=== PATIENT | female | born 1955 | race Caucasian/White ===

== ENCOUNTER 2020-08-18 11:59 | Emergency (ER) | payer BC, SELFPAY ==
--- NOTE | 2020-08-18 12:05 | ED.FEMALEGU ---
HPI - Female Genitourinary General Chief complaint: Urogenital-Female Stated complaint: FREQUENT URINATION/BLOOD IN URINE Time Seen by Provider: 08/18/20 12:39 Source: patient, RN notes reviewed and old records reviewed Mode of arrival: ambulatory Limitations: no limitations History of Present Illness HPI Narrative: 64-year-old female who presents to [facility] with complaints of 3-day history of lower abdominal pain with fatigue and some fevers. Patient states some frequency with urination, burning with urination, and urgency, states past history of UTIs. Patient states that she has noted that her urine had a strong odor and was very dark. Patient admits to some right sided flank pain and suprapubic tenderness. Patient denies any nausea or vomiting or any decreased appetite, reports no fevers over 101F noted, has taken Tylenol for her discomfort and fever. Has been taking [employer] for her symptoms. MD elicited complaint: UTI , flank pain (right) and other (lower abdominal pain with strong odorous urine) Onset (ago): day(s) (3) Location of symptoms: suprapubic and flank (right) Female Urogenital Radiation: Suprapubic and R Flank Vaginal discharge: none Vaginal bleeding: none Urinary symptoms: Dysuria, Urgency, Frequency, Hematuria, Foul Smelling Urine and Flank Pain (right) Possible : postmenopausal Related Data Home Medications Medication Instructions Recorded Confirmed cholecalciferol (vitamin D3) 125 See Rx Instructions .ROUTE .COMPLEX 10/27/19 mcg (5,000 unit) tablet atomoxetine 18 mg capsule 36 mg PO DAILY 02/04/20 Allergies Allergy/AdvReac Type Severity Reaction Status Date / Time No Known Allergies Allergy Unverified 11/09/17 09:40 Review of Systems Review of Systems: Narrative: CONSTITUTIONAL: Denies fever, chills, or sweats. EYES: Denies visual changes, redness, or discharge. ENT: Denies rhinorrhea, congestion, sore throat, or otalgia. CARDIOVASCULAR: Denies chest pain, palpitations, or edema. RESPIRATORY: Denies cough or dyspnea. GASTROINTESTINAL: Denies abdominal pain, nausea, vomiting, or diarrhea. GENITOURINARY: Positive for dysuria or hematuria positive urgency, frequency and burning with urination SKIN: Denies rash or itching. MUSCULOSKELETAL: positive right flank back pain, joint pain, or myalgia. NEUROLOGIC: Denies headache, numbness, or weakness. PSYCHIATRIC: Denies anxiety or depression. All systems reviewed & are unremarkable except as noted in HPI and below PMFSH Past Medical History Medical History (Updated 08/18/20 @ 14:50 by Francesca Hinson NP) Dizziness Headaches, cluster Urinary tract infection Surgical History Surgical History (Updated 08/18/20 @ 14:51 by Francesca Hinson NP) History of hip replacement (~01/2017) History of hip surgery (~10/2015) History of partial hysterectomy S/P removal of ovarian cyst (~2006) Family History Family History Father , 84 Parkinson disease Mother , 81 COPD (chronic obstructive pulmonary disease) CHF (congestive heart failure) Alzheimer disease Social History Social History Social History: Drinks soda daily Smoking status: Never smoker Alcohol intake: current Substance use: never Comments At time of signature, agree with nursing past medical, surgical, social and family history. There is no relevant family history pertinent to the presenting complaint Exam Narrative: Exam Narrative: GENERAL: Well-appearing, well-nourished, and in no acute distress. HEAD: Normocephalic, atraumatic. EYES: PERRLA and EOMI. ENT: Nares clear, no rhinorrhea or epistaxis. Mucous membranes moist. NECK: Supple.no lymphadenopathy CHEST: Clear to auscultation. No respiratory distress.SAO2 99% on room air HEART: Regular rate and rhythm. No murmur heard. Normal peripheral pulses. ABDOMEN: Soft, t
[2020-08-18 12:09] VITALS: BP 127/55; PULSE 102; RESP 16; TEMP 37.6; O2SAT 99
== END 2020-08-18 13:06 | disposition home or self-care (01) ==
PROVIDERS: Emergency Provider Registered Nurse; PCP Emergency Medicine
DX: N39.0 Urinary tract infection, site not specified (principal); Z96.649 Presence of unspecified artificial hip joint; Z90.711 Acquired absence of uterus with remaining cervical stump
CPT/HCPCS: 81003; 87077; 87086; 87088; 87186; 99213; G0463

== ENCOUNTER 2021-01-14 00:37 | Day surgery (SDC) | payer MEDICARE, SELFPAY ==
[2020-12-09 13:02] VITALS: BMI 18.8
--- NOTE | 2021-01-04 10:37 | PC.NURSE ---
Spoke with pt 01/04/21 @ 3017 to update pt re date/times for rescheduled colonoscopy. Pt verbalized understanding and verified no changes to past medical history or home medication regimen. KARENA Vega
[2021-01-14 06:27] VITALS: BP 145/76; PULSE 88; RESP 18; TEMP 37.1; O2SAT 98; BMI 17.4
[2021-01-14] MEDS: LACTATED RINGERS 1,000 ML 150 ML IV CONT (06:37)
--- NOTE | 2021-01-14 06:58 | WPDANESEPPF ---
Anes - Initial Pre Proc Eval Procedure: Operation Date: 01/14/21 07:30 Proposed Procedures p Screening Colonoscopy - Jason Fairbanks MD Date/Time: 01/14/21 06:58 Surgeon: Jason Fairbanks MD Pre Op Diagnosis: neoplasm screening Patient Data Age: 65 Gender: F Height: 1.68 m Weight: 49 kg Last Vital Signs Temp 37.1 C 01/14/21 06:27 Pulse 88 01/14/21 06:27 Resp 18 01/14/21 06:27 BP 145/76 H 01/14/21 06:27 Pulse Ox 98 01/14/21 06:27 Allergies Allergy/AdvReac Type Severity Reaction Status Date / Time No Known Allergies Allergy Verified 01/14/21 06:24 Home Medications Medication Instructions Recorded Confirmed Type cholecalciferol (vitamin D3) 125 See Rx Instructions .ROUTE .COMPLEX 10/27/19 01/14/21 History mcg (5,000 unit) tablet enalapril maleate 10 mg tablet See Rx Instructions .ROUTE 05/03/20 01/14/21 Rx .COMPLEX #90 tablet alprazolam 0.5 mg tablet 0.5 mg PO TID PRN #30 tablet 11/03/20 01/14/21 Rx escitalopram oxalate 20 mg tablet 20 mg PO DAILY #90 tablet 12/27/20 01/14/21 Rx meclizine 25 mg tablet See Rx Instructions .ROUTE 12/31/20 01/14/21 Rx .COMPLEX #30 tablet Patient hx anesthesia problems: none Family hx anesthesia problems: none Results Review: All pre-operative results and documents have been reviewed as part of the pre-operative evaluation. [facility] Past Medical History Medical History Dizziness Headaches, cluster Urinary tract infection Surgical History Surgical History History of hip replacement (~01/2017) History of hip surgery (~10/2015) History of partial hysterectomy S/P removal of ovarian cyst (~2006) Family History Family History Father , 84 Parkinson disease Mother , 81 COPD (chronic obstructive pulmonary disease) CHF (congestive heart failure) Alzheimer disease Social History Social History Social History: Drinks soda daily Smoking status: Never smoker Alcohol intake: current Drinks per week: 1 Alcohol use details: weekly, varies, not to excess Substance use: never Substance use type: does not use Living arrangements: with family Spiritual care concerns: No Anes - Eval Final PreProcedure Day of Procedure 01/14/21 06:58 Patient weight: thin Heart: regular rate and rhythm Lungs: clear to auscultation Airway: Mallampati scale class II Neurological: alert and oriented Last oral intake: >/= 8 hours ASA classification: II Emergent: no Anesthetic plan: proceed Anesthesia type and monitoring: general GIVS and standard monitoring Results Review: All pre-operative results and documents have been reviewed as part of the pre-operative evaluation. Informed Consent: The patient's anesthetic plan and its attendant risks and benefits were discussed with the patient/family/POA. Questions were solicited and answers provided to the satisfaction of the patient/family/POA.
--- NOTE | 2021-01-14 07:27 | PM.HPGS ---
History of Present Illness History of Present Illness Consent: Risks, benefits, and alternatives have been discussed and questions answered. Patient agrees to proceed with procedure. Chief complaint: neoplasm screening Narrative: Ysabel Manley is a 65 year old female with last colonoscopy 5 years ago, she had polyps previously. Review of Systems Constitutional: Constitutional: Denies headache(s) and Denies weakness Eyes: Eyes: Denies blurry vision ENT: Reports Normal hearing present, Denies headache(s) and Denies neck pain Cardiovascular: Cardiovascular: Denies chest pain and Denies dyspnea Respiratory: Respiratory: Denies dyspnea Gastrointestinal: Gastrointestinal: Reports no additional gastrointestinal complaints Genitourinary: Genitourinary: Denies dysuria Musculoskeletal: Musculoskeletal: Denies neck pain Integumentary/Breasts: Skin/Breast: Denies dry skin Neurologic: Reports Normal hearing present, Denies headache(s) and Denies weakness Psychiatric: Psychiatric: Denies anxiety Endocrine: Endocrine: Denies change in body appearance Hematologic/Lymphatic: Hematologic/Lymphatic: Denies easy bleeding Allergic/Immunologic: Allergic/Immunologic: Denies urticaria PMFSH Past Medical History Medical History Dizziness Headaches, cluster Urinary tract infection Surgical History Surgical History History of hip replacement (~01/2017) History of hip surgery (~10/2015) History of partial hysterectomy S/P removal of ovarian cyst (~2006) Family History Family History Father , 84 Parkinson disease Mother , 81 COPD (chronic obstructive pulmonary disease) CHF (congestive heart failure) Alzheimer disease Social History Social History Social History: Drinks soda daily Smoking status: Never smoker Alcohol intake: current Drinks per week: 1 Alcohol use details: weekly, varies, not to excess Substance use: never Substance use type: does not use Living arrangements: with family Spiritual care concerns: No Meds Home Medications and Allergies Home Medications Medication Instructions Recorded Confirmed Type cholecalciferol (vitamin D3) 125 See Rx Instructions .ROUTE .COMPLEX 10/27/19 01/14/21 History mcg (5,000 unit) tablet enalapril maleate 10 mg tablet See Rx Instructions .ROUTE 05/03/20 01/14/21 Rx .COMPLEX #90 tablet alprazolam 0.5 mg tablet 0.5 mg PO TID PRN #30 tablet 11/03/20 01/14/21 Rx escitalopram oxalate 20 mg tablet 20 mg PO DAILY #90 tablet 12/27/20 01/14/21 Rx meclizine 25 mg tablet See Rx Instructions .ROUTE 12/31/20 01/14/21 Rx .COMPLEX #30 tablet Allergies Allergy/AdvReac Type Severity Reaction Status Date / Time No Known Allergies Allergy Verified 01/14/21 06:24 Vital Signs Vital Signs - 24 hr 01/14/21 06:27 Temperature 98.8 F Pulse Rate 88 Respiratory Rate 18 Blood Pressure 145/76 H Pulse Oximetry 98 Exam Const: General: comfortable and no acute distress HENMT: General nose exam: Normal nares present Eyes: General: appearance normal, both eyes and all related structures Neck: Neck: no JVD Resp: Auscultation: clear to auscultation bilaterally Cardio: Rate: regular rate Rhythm: regular rhythm GI: Inspection: non-distended GI Palp: Yes Soft to palpation Skin: General skin exam: normal color Neuro: General: gait normal Speech: normal speech Extrem: General: normal to inspection Psych: Mental Status: mental status grossly normal Assessment and Plan Assessment and plan (1) Colon cancer screening: Code(s): Z12.11 - Encounter for screening for malignant neoplasm of colon Status: Acute Assessment and Plan: colonoscopy
[2021-01-14 07:49] VITALS: BP 134/81; PULSE 72; RESP 16; O2SAT 100
[2021-01-14 07:59] VITALS: BP 133/82; PULSE 76; RESP 23; O2SAT 100
[2021-01-14 08:09] VITALS: BP 143/79; PULSE 71; RESP 16; O2SAT 100
== END 2021-01-14 08:25 | disposition home or self-care (01) ==
PROVIDERS: PCP Emergency Medicine; Visit Provider Internal Medicine Gastroenterology
PROC: 0DJD8ZZ Inspection of Lower Intestinal Tract, Via Natural or Artificial Opening Endoscopic (ICD-10-PCS; CPT 45378; principal; 2021-01-14 07:30)
DX: Z12.11 Encounter for screening for malignant neoplasm of colon (principal); Z86.010 Personal history of colon polyps; K64.8 Other hemorrhoids
CPT/HCPCS: G0105; J2704; J7120

== ENCOUNTER 2021-03-31 10:03 | Emergency (ER) | payer MEDICARE, SELFPAY ==
[2021-03-31 10:08] VITALS: BP 147/77; PULSE 78; RESP 12; TEMP 37; O2SAT 100
--- NOTE | 2021-03-31 10:11 | ED.EAR ---
HPI - Ear Problem General Chief complaint: Ear Stated complaint: + COVID/HEADACHE/NAUSEA/SINUS/EARACHE Source: patient Mode of arrival: ambulatory Limitations: no limitations History of Present Illness HPI Narrative: 65-year-old female presented for complaint of bilateral ear pain for approximately 1 week. She endorses testing positive for Covid 10 days ago. She has been taking DayQuil (1/2 dose) for symptoms. Endorses associated headache and sinus pressure/congestion, denies cough, shortness of breath, sore throat, fever or chills. She did receive [employer] Covid vaccine, has not received the booster. Complaint: ear pain Related Data Home Medications Medication Instructions Recorded Confirmed cholecalciferol (vitamin D3) 125 See Rx Instructions .ROUTE .COMPLEX 10/27/19 03/31/21 mcg (5,000 unit) tablet Allergies Allergy/AdvReac Type Severity Reaction Status Date / Time No Known Allergies Allergy Verified 03/31/21 10:08 Review of Systems Review of Systems: CONSTITUTIONAL: Denies malaise, chills, sweats, or fever. EYES: Denies visual changes, redness, or discharge. ENT: Denies rhinorrhea and sore throat. Reports ear pain, sinus pressure CARDIOVASCULAR: Denies chest pain, palpitations, or edema. RESPIRATORY: Denies cough. Denies dyspnea. GASTROINTESTINAL: Denies abdominal pain, nausea, vomiting, diarrhea SKIN: Denies rash or itching. MUSCULOSKELETAL: Denies myalgia. NEUROLOGIC: endorses headache. All systems reviewed & are unremarkable except as noted in HPI and below PMFSH Past Medical History Medical History Dizziness Headaches, cluster Urinary tract infection Surgical History Surgical History History of hip replacement (~01/2017) History of hip surgery (~10/2015) History of partial hysterectomy S/P removal of ovarian cyst (~2006) Family History Family History Father , 84 Parkinson disease Mother , 81 COPD (chronic obstructive pulmonary disease) CHF (congestive heart failure) Alzheimer disease Social History Social History Social History: Drinks soda daily Smoking status: Never smoker Alcohol intake: current Drinks per week: 1 Alcohol use details: weekly, varies, not to excess Substance use: never Substance use type: does not use Spiritual care concerns: No Comments At time of signature, agree with nursing past medical, surgical, social and family history. There is no relevant family history pertinent to the presenting complaint Exam Narrative: GENERAL: Well-appearing, well-nourished, and in no acute distress. HEAD: Normocephalic EYES: PERRLA, conjunctivae clear ENT: Nares clear. Mucous membranes moist. TM pearly schmitt with dull light reflex bilaterally; no tragal tenderness. Oropharynx not erythematous without lesions. Tonsils not enlarged and without exudate, no drooling, no hoarseness, no trismus, uvula midline. NECK: Supple. No lymphadenopathy CHEST: Clear to auscultation, breath sounds equal. No wheezing, rhonchi, rales, or stridor. No respiratory distress, speaks in full sentences. HEART: Regular rate and rhythm. No murmur heard. SKIN: Warm, dry, no rash. NEURO: Alert and oriented x3. PSYCH: Normal mood and affect Course Course Emergency Course: During the encounter patient endorses thoughts of hurting herself, stating I am just tired of being sick, and my in-laws give me problems. She states she is a the last 6 years. Patient states she does not have a plan for suicide, and has a good support system, stating she calls her sister her friend whenever she feels discouraged. We discussed following up with PCP as well. Patient is aware of diagnosis, understands and agrees to treatment plan. Anticipat
== END 2021-03-31 10:33 | disposition home or self-care (01) ==
PROVIDERS: Emergency Provider Nurse Practitioner Family; PCP Emergency Medicine
DX: H92.03 Otalgia, bilateral (principal); Z86.16 Personal history of COVID-19; Z96.649 Presence of unspecified artificial hip joint; Z90.711 Acquired absence of uterus with remaining cervical stump
CPT/HCPCS: 99213; G0463

== ENCOUNTER 2023-06-21 13:17 | Outpatient (CLI) | payer MEDICARE, SELFPAY ==
--- NOTE | ~2023-06-21 | MM_ITS ---
EXAMINATION: MM screening radha BI w glen HISTORY: Screening TECHNIQUE: Craniocaudal and mediolateral oblique 3-D tomosynthesis images were obtained and synthetic 2-D images were generated. CAD analysis was submitted and interpreted. COMPARISON: Comparison to multiple prior studies sequentially, with oldest reviewed study dated 04/2027. BREAST PARENCHYMAL COMPOSITION: Dense: The breasts are heterogeneously dense, which may obscure small masses FINDINGS: There is no evidence of suspicious mass, calcification, or architectural distortion to sugg est malignancy in either breast. There has been no suspicious interval change. IMPRESSION: 1. No mammographic evidence of malignancy. 2. Recommend routine screening mammography in one year. BI-RADS Category 1: Negative Reviewed, dictated and finalized at location B.
--- NOTE | ~2023-06-21 | DEXA_ITS ---
Bone Density Report Name: GERRY KHAN Age: 67 Sex: Female Ethnicity: White Date of : 1955 Indication: postmenopausal; screening for osteoporosis; prior fracture; Referring Provider: KING DIGGS Study: Bone densitometry was performed. Exam Date: June 21, 2023 Accession number: [id number] Bone Density: Region BMD T-score Z-score Classification AP Spine (L1-L4) 0.872 -1.6 0.4 Osteopenia Femoral Neck (Left) 0.609 -2.2 -0.5 Osteopenia Total Hip (Left) 0.739 -1.7 -0.3 Osteopenia World Health Organization criteria for BMD impression classify patients as: Normal (T-score at or above -1.0), Osteopenia (T-score between -1.0 and -2.5), or Osteoporosis (T-score at or below -2.5). 10-year Fracture Risk: FRAX not reported because: Prior hip or vertebral fracture Clinical Information Provided by Patient: Have had a previous hip or vertebral fracture Has had a low trauma fracture Has used the following medications: Vitamin D, MTV Patient maximum height was 66.5 Menopause Age: 51 No regular weight bearing exercise Does not regularly consume dairy products Drinks caffeinated beverages Onset of menses at age 14 Number of children 0 Impression: The patient has low bone mass, based on the Left Femoral Neck T-score. The patient has risk factors, including: previous fracture. Discussion: INCREASED RISK OF FRACTURE DUE TO HISTORY OF FRACTURE. The patient's previous fracture puts the patient at high risk of a future fracture. In untreated patients, the risk of osteoporotic fracture increases approximately two-fold for each 1.0 SD decrease in T-score. Low bone density is not the only risk factor for fracture; also consider factors such as patient's age, frailty or poor health, risk of falling, risk of injury, previous osteoporotic fracture, family history of osteoporosis, cigarette smoking, low body weight, etc. Not everyone with a low trauma fracture has osteoporosis; osteomalacia and other metabolic bone disorders should also be considered. Patients who have osteoporosis should be evaluated for specific diseases and conditions (secondary causes) that may cause or contribute to bone loss and fracture risk. National Osteoporosis Foundation (NOF) recommends pharmacologic intervention for patients with a prior hip or vertebral fracture regardless of BMD T-score. The patient should follow a healthful lifestyle (good nutrition with adequate calcium and vitamin D, and appropriate weight-bearing exercise). Follow-Up: Consider a repeat BMD and Vertebral Fracture Assessment (VFA) exam in 2 years or sooner if medically necessary, to reassess this patient's status. Reported by: ALEJO on 06/21/2023 1:42:00 PM. Reviewed, dictated and finalized at location AC[facility] QUIGLEY
== END 2023-06-21 13:18 ==
LOC: MICIMG 13:18
PROVIDERS: PCP Emergency Medicine; Visit Provider Emergency Medicine
DX: Z12.31 Encounter for screening mammogram for malignant neoplasm of breast (principal); Z78.0 Asymptomatic menopausal state; M85.89 Other specified disorders of bone density and structure, multiple sites
CPT/HCPCS: 77063; 77067; 77080